=== PATIENT | male | born 1945 | race Caucasian/White ===

== ENCOUNTER 2021-02-07 11:36 | Emergency (ER) | payer MEDICARE ==
[2021-02-07 13:22] LABS: HEMOGLOBIN 12.5 gm/dl (14.0-17.5); RED BLOOD COUNT 3.92 M/UL (4.20-5.50); WHITE BLOOD COUNT 5.7 K/UL (4.5-11.0)
[2021-02-07 14:15] LABS: BUN/CREATININE RATIO 13 (0-10)
[2021-02-07] MEDS ORDERED: ZOFRAN4 MG PO (17:01)
[2021-02-07] MEDS ORDERED: MECLIZINE HCL25 MG PO (17:01)
[2021-02-28] MEDS ORDERED: FLOMAX0.4 MG PO (06:47)
[2021-02-28] MEDS ORDERED: VITAMIN D 40400 UNIT PO (06:49)
[2021-02-28] MEDS ORDERED: PRILOSEC OTC20 MG PO (06:49)
[2021-02-28] MEDS ORDERED: CENTRUM SILVER1 EAC1 PO (06:49)
== END 2021-02-07 17:10 | disposition home or self-care (01) ==
LOC: ER1 11:36
PROVIDERS: Physician Assistant
DX: R42 Dizziness and giddiness (principal); R51.9 Headache, unspecified; R11.0 Nausea; K21.9 Gastro-esophageal reflux disease without esophagitis
CPT/HCPCS: 70496; 70498; 80053; 82550; 82553; 84484; 85025; 93005; 96374; 99284; J2405; Q9967

== ENCOUNTER → 2021-02-28 | Day surgery (SDC) | payer MEDICARE ==
[~2021-02-28] MED LIST: CENTRUM SILVER1 EAC1 PO; FLOMAX0.4 MG PO; MECLIZINE HCL25 MG PO; PRILOSEC OTC20 MG PO; VITAMIN D 40400 UNIT PO; ZOFRAN4 MG PO
== END | disposition home or self-care (01) ==
LOC: OR 06:15
DX: N40.1 Benign prostatic hyperplasia with lower urinary tract symptoms (principal); N40.3 Nodular prostate with lower urinary tract symptoms; R33.8 Other retention of urine; R35.0 Frequency of micturition; R39.14 Feeling of incomplete bladder emptying; R35.1 Nocturia; R39.15 Urgency of urination; Z80.42 Family history of malignant neoplasm of prostate; K58.9 Irritable bowel syndrome, unspecified; Z87.891 Personal history of nicotine dependence
CPT/HCPCS: 84153; J1100; J1956; J2001; J2405; J2704; J7030; J7040; J7120

== ENCOUNTER → 2021-05-16 | Outpatient (CLI) | payer MEDICARE | LOC: EMI 08:00 | DX: I67.1 Cerebral aneurysm, nonruptured (principal); R42 Dizziness and giddiness | CPT/HCPCS: 70544 ==